=== PATIENT | male | born 1980 | race Native Hawaiian/Other Pacific Islander ===

== ENCOUNTER 2017-01-16 16:54 | Emergency (ER) | payer OTHER ==
[2017-01-16 17:01] VITALS: RESP 18
--- NOTE | 2017-01-16 17:16 | ED ---
Psych HPI - General Source: patient, RN notes reviewed, old records reviewed Mode of arrival: ambulatory <Torie Germain - Last Filed: 01/16/17 20:00> <Kirstie Lucia - Last Filed: 01/16/17 20:52> - General Chief Complaint: Psychiatric Symptoms Stated Complaint: Tick Bite Time Seen by Provider: 01/16/17 17:05 - History of Present Illness Initial Comments: Patient is a 36-year-old male presenting to the emergency department with an acute manic episode and delusions. Patient reports that he's been diagnosed with schizophrenia in the past. Patient is stating that he is very concerned that a tick bit him 2 years ago and now is taking over his mind. Patient states that he feels like he has a host and the tick is making him do things that he doesn't doesn't want to. Patient is concerned that he is now a host for "lyme's disease". Patient states that he does feel very tired. Patient Reports that he lives with his mother. Patient's mother encouraged him to be seen. Patient denies any abdominal pain, nausea or vomiting. Patient states that he has no intention to harm himself or anyone else. Patient is concerned though that the tick may force him to harm somebody else. (Torie Germain) - Related Data Home Medications Medication Instructions Recorded Confirmed No Known Home Medications [No 01/16/17 01/16/17 Known Home Medications] Allergies Allergy/AdvReac Type Severity Reaction Status Date / Time cephalexin [From Keflex] Allergy Anaphylaxis Verified 01/16/17 17:01 Review of Systems ROS Other: All systems not noted in ROS Statement are negative. <Torie Germain - Last Filed: 01/16/17 20:00> ROS Other: All systems not noted in ROS Statement are negative. <Kirstie Lucia - Last Filed: 01/16/17 20:52> ROS Statement: Those systems with pertinent positive or pertinent negative responses have been documented in the HPI. Past Medical History Past Medical History: No Reported History History of Any Multi-Drug Resistant Organisms: None Reported Past Surgical History: No Surgical Hx Reported Past Psychological History: No Psychological Hx Reported Smoking Status: Never smoker Past Alcohol Use History: None Reported Past Drug Use History: None Reported <Torie Germain - Last Filed: 01/16/17 20:00> General Exam Limitations: no limitations General appearance: alert, in no apparent distress Head exam: Present: atraumatic, normocephalic, normal inspection Eye exam: Present: normal appearance, PERRL, EOMI. Absent: scleral icterus, conjunctival injection, periorbital swelling ENT exam: Present: normal exam, mucous membranes moist, TM's normal bilaterally Neck exam: Present: normal inspection, full ROM. Absent: tenderness, meningismus, lymphadenopathy Respiratory exam: Present: normal lung sounds bilaterally. Absent: respiratory distress, wheezes, rales, rhonchi, stridor Cardiovascular Exam: Present: regular rate, normal rhythm, normal heart sounds. Absent: systolic murmur, diastolic murmur, rubs, gallop, clicks GI/Abdominal exam: Present: soft, normal bowel sounds. Absent: distended, tenderness, guarding, rebound, rigid Extremities exam: Present: normal inspection, full ROM, normal capillary refill. Absent: tenderness, pedal edema, joint swelling, calf tenderness Back exam: Present: normal inspection Neurological exam: Present: alert, oriented X3, CN II-XII intact Psychiatric exam: Present: anxious, manic (Patient has word salad, continues to talk about the tick. He also reports that he is God.), other (delusional. Patient reports tick has invaded his brain and telling him to do things. ). Absent: normal affect, normal mood, agitated Skin exam: Present: warm, dry, intact, normal color. Absent: rash <Torie Germain - Last Filed: 01/16/17 20:00> <Kirstie Lucia - Last Filed: 01/16/17 20:52> - General Exam Comments Initial Comments: This is a disheveled 36-year-old male. (Torie Germain) Course <Torie Germain - Last Filed: 01/16/17 20:00> <Kirstie Lucia - Last Filed: 01/16/17 20:52> Vital Signs 01/16/17 16:55 Temperature 96.8 F L Pulse Rate 142 H Respiratory 18 Rate Blood Pressure 154/98 O2 Sat by Pulse 96 Oximetry - Reevaluation(s) Reevaluation #1: 01/16/17 18:51 All labs are reviewed at this time. Negative for any significant process. She has medically clear at this time for psychiatric evaluation. 01/16/17 18:56 (Torie Germain) Medical Decision Making - Lab Data Result diagrams: 01/16/17 17:57 01/16/17 17:57 <Torie Germain - Last Filed: 01/16/17 20:00> - Lab Data Result diagrams: 01/16/17 17:57 01/16/17 17:57 <Kirstie Lucia - Last Filed: 01/16/17 20:52> - Medical Decision Making Patient is a 36-year-old male presenting to the emergency department with an acute manic episode and delusions. Patient reports that he's been diagnosed with schizophrenia in the past. Patient is stating that he is very concerned that a tick bit him 2 years ago and now is taking over his mind. Patient states that he feels like he has a host and the tick is making him do things that he doesn't doesn't want to. Patient is concerned that he is now a host for "lyme's disease". Patient states that he does feel very tired. Patient Reports that he lives with his mother. Patient's lab work was reviewed and completed because of his elevated heart rate. Patient is medically clear this time lab work was reviewed to be negative. Patient was evaluated by EPS. Patient will be admitted for delusions. There is a hold so patient will be held in the emergency department on until the bed is available.. (Torie Germain) - Lab Data Lab Results 01/16/17 01/16/17 01/16/17 Range/Units 17:57 17:57 17:57 WBC 12.3 H (3.8-10.6) k/uL RBC 5.49 (4.30-5.90) m/uL Hgb 17.5 (13.0-17.5) gm/dL Hct 50.0 (39.0-53.0) % MCV 91.1 (80.0-100.0) fL MCH 31.9 (25.0-35.0) pg MCHC 35.0 (31.0-37.0) g/dL RDW 12.3 (11.5-15.5) % Plt Count 302 (150-450) k/uL Neutrophils % 82 % Lymphocytes % 11 % Monocytes % 6 % Eosinophils % 1 % Basophils % 0 % Neutrophils # 10.1 H (1.3-7.7) k/uL Lymphocytes # 1.3 (1.0-4.8) k/uL Monocytes # 0.7 (0-1.0) k/uL Eosinophils # 0.1 (0-0.7) k/uL Basophils # 0.0 (0-0.2) k/uL Sodium 142 (137-145) mmol/L Potassium 4.1 (3.5-5.1) mmol/L Chloride 106 (98-107) mmol/L Carbon Dioxide 20 L (22-30) mmol/L Anion Gap 16 mmol/L BUN 16 (9-20) mg/dL Creatinine 1.07 (0.66-1.25) mg/dL Est GFR (MDRD) Af Amer >60 (>60 ml/min/1.73 sqM) Est GFR (MDRD) Non-Af >60 (>60 ml/min/1.73 sqM) Glucose 103 H (74-99) mg/dL Calcium 10.0 (8.4-10.2) mg/dL Total Bilirubin 1.2 (0.2-1.3) mg/dL AST 38 (17-59) U/L ALT 74 H (21-72) U/L Alkaline Phosphatase 99 (38-126) U/L Troponin I <0.012 (0.000-0.034) ng/mL Total Protein 9.0 H (6.3-8.2) g/dL Albumin 5.0 (3.5-5.0) g/dL TSH 1.390 (0.465-4.680) mIU/L Urine Color Urine Appearance (Clear) Urine pH (5.0-8.0) Ur Specific [place] (1.001-1.035) Urine Protein (Negative) Urine Glucose (UA) (Negative) Urine Ketones (Negative) Urine Blood (Negative) Urine Nitrite (Negative) Urine Bilirubin (Negative) Urine Urobilinogen (<2.0) mg/dL Ur Leukocyte Esterase (Negative) Urine Opiates Screen (NotDetected) Ur Oxycodone Screen (NotDetected) Urine Methadone Screen (NotDetected) Ur Propoxyphene Screen (NotDetected) Ur Barbiturates Screen (NotDetected) U Tricyclic Antidepress (NotDetected) Ur Phencyclidine Scrn (NotDetected) Ur Amphetamines Screen (NotDetected) U Methamphetamines Scrn (NotDetected) U Benzodiazepines Scrn (NotDetected) Urine Cocaine Screen (NotDetected) U Marijuana (THC) Screen (NotDetected) 01/16/17 01/16/17 Range/Units 18:06 19:00 WBC (3.8-10.6) k/uL RBC (4.30-5.90) m/uL Hgb (13.0-17.5) gm/dL Hct (39.0-53.0) % MCV (80.0-100.0) fL MCH (25.0-35.0) pg MCHC (31.0-37.0) g/dL RDW (11.5-15.5) % Plt Count (150-450) k/uL Neutrophils % % Lymphocytes % % Monocytes % % Eosinophils % % Basophils % % Neutrophils # (1.3-7.7) k/uL Lymphocytes # (1.0-4.8) k/uL Monocytes # (0-1.0) k/uL Eosinophils # (0-0.7) k/uL Basophils # (0-0.2) k/uL Sodium (137-145) mmol/L Potassium (3.5-5.1) mmol/L Chloride (98-107) mmol/L Carbon Dioxide (22-30) mmol/L Anion Gap mmol/L BUN (9-20) mg/dL Creatinine (0.66-1.25) mg/dL Est GFR (MDRD) Af Amer (>60 ml/min/1.73 sqM) Est GFR (MDRD) Non-Af (>60 ml/min/1.73 sqM) Glucose (74-99) mg/dL Calcium (8.4-10.2) mg/dL Total Bilirubin (0.2-1.3) mg/dL AST (17-59) U/L ALT (21-72) U/L Alkaline Phosphatase (38-126) U/L Troponin I (0.000-0.034) ng/mL Total Protein (6.3-8.2) g/dL Albumin (3.5-5.0) g/dL TSH (0.465-4.680) mIU/L Urine Color Yellow Urine Appearance Clear (Clear) Urine pH 5.5 (5.0-8.0) Ur Specific [place] 1.025 (1.001-1.035) Urine Protein Trace H (Negative) Urine Glucose (UA) Negative (Negative) Urine Ketones 2+ H (Negative) Urine Blood Negative (Negative) Urine Nitrite Negative (Negative) Urine Bilirubin Negative (Negative) Urine Urobilinogen <2.0 (<2.0) mg/dL Ur Leukocyte Esterase Negative (Negative) Urine Opiates Screen Not Detected (NotDetected) Ur Oxycodone Screen Not Detected (NotDetected) Urine Methadone Screen Not Detected (NotDetected) Ur Propoxyphene Screen Not Detected (NotDetected) Ur Barbiturates Screen Not Detected (NotDetected) U Tricyclic Antidepress Not Detected (NotDetected) Ur Phencyclidine Scrn Not Detected (NotDetected) Ur Amphetamines Screen Not Detected (NotDetected) U Methamphetamines Scrn Not Detected (NotDetected) U Benzodiazepines Scrn Not Detected (NotDetected) Urine Cocaine Screen Not Detected (NotDetected) U Marijuana (THC) Screen Not Detected (NotDetected) 01/16/17 17:47 EKG shows sinus tachycardia ventricular rate of 116 bpm. TX interval 1:30 milliseconds. QRS duration 84. QT QTC 326/453 ms. No evidence of ST elevation or T-wave inversion. No evidence of atrial or ventricular arrhythmias. (Torie Germain) Disposition <Troie Germain - Last Filed: 01/16/17 20:00> <Kirstie Lucia - Last Filed: 01/16/17 20:52> Clinical Impression: Delusion Disposition: ADMITTED IP TO THIS [facility] Referrals: Nonstaff,Physician [Primary Care Provider] - 1-2 days
[2017-01-16 18:10] LABS: Basophils % (A) 0 %; CH 32.4; CHCM 35.7; Eosinophils # (A) 0.1 k/uL (0-0.7); Eosinophils % (A) 1 %; HDW 2.59; HGB 17.5 gm/dL (13.0-17.5); Luc % (Auto) 1; Lymphocytes # (A) 1.3 k/uL (1.0-4.8); Lymphocytes % (A) 11 %; MCH 31.9 pg (25.0-35.0); MCV 91.1 fL (80.0-100.0); Mean Platelet Volume 6.9; Monocytes # (A) 0.7 k/uL (0-1.0); Monocytes % (A) 6 %; Neutrophils # (A) 10.1 k/uL (1.3-7.7); Neutrophils % (A) 82 %; RBC 5.49 m/uL (4.30-5.90); RDW 12.3 % (11.5-15.5); WBC 12.3 k/uL (3.8-10.6); WBC (Perox) 11.36
[2017-01-16 18:16] LABS: ALT 74 U/L (21-72); AST 38 U/L (17-59); Alkaline Phosphatase 99 U/L (38-126); Anion Gap 16 mmol/L; Blood Urea Nitrogen 16 mg/dL (9-20); Carbon Dioxide 20 mmol/L (22-30); Chloride 106 mmol/L (98-107); Glucose 103 mg/dL (74-99); Non-African American GFR(MDRD) >60 (>60 ml/min/1.73 sqM); Potassium 4.1 mmol/L (3.5-5.1); Sodium 142 mmol/L (137-145); Total Bilirubin 1.2 mg/dL (0.2-1.3)
[2017-01-16 18:17] LABS: Appearance,Urine Clear (Clear); Bilirubin,Urine Negative (Negative); Glucose,Urine (UA) Negative (Negative); Ketones,Urine 2+ (Negative); Leukocyte Esterase,Urine Negative (Negative); Nitrite,Urine Negative (Negative); PH, Urine 5.5 (5.0-8.0); Protein,Urine Trace (Negative); Specific Gravity,Urine 1.025 (1.001-1.035); UA Billing (MACRO vs. MICRO) CHEM; Urobilinogen,Urine <2.0 mg/dL (<2.0)
[2017-01-16] MEDS ORDERED: LORazepam 1 MG TAB PO STA (20:53)
[2017-01-17 07:39] VITALS: BP 116/70; PULSE 109; TEMP 98
== END 2017-01-17 07:53 | disposition other institution (70) ==
LOC: EC 16:54
DX: F22 Delusional disorders (principal); F20.9 Schizophrenia, unspecified; Z88.1 Allergy status to other antibiotic agents
CPT/HCPCS: 36415; 80053; 80306; 81003; 84443; 84484; 85025; 93005; 99285